=== PATIENT | female | born 1945 | race Caucasian/White ===

== ENCOUNTER 2024-04-30 09:57 | Day surgery (SDC) | payer MEDICARE ==
[2024-04-29 11:02] VITALS: BMI 20.5
[2024-04-30] MEDS: LIDOCAINE 1% (10MG/ML) FOR IV START INTRADERMA STA (11:14)
[2024-04-30] MEDS: IV FLUID CONTINUATION 1,000 ML IV ONE (11:14)
[2024-04-30 11:15] VITALS: TEMP 97.9
[2024-04-30] MEDS: LACTATED RINGERS 1,000 ML IV SCH (11:15)
[2024-04-30] MEDS: ONDANSETRON 4 MG/2 ML VIAL IVP STA (11:27)
[2024-04-30] MEDS ORDERED: LIDOCAINE 1% INJ 10MG/ML (20 ML MDV) ONE (12:17)
[2024-04-30] MEDS ORDERED: PROPOFOL 10 MG/ML 20 ML VIAL IV ONE (12:17)
--- NOTE | 2024-04-30 12:25 | P.PCN ---
Date of Procedure: 04/30/24 Procedure(s) Performed: BRIEF HISTORY: Patient is a 79-year-old, pleasant, white female skilled for an upper endoscopy as a part evaluation of chronic persistent nausea for the last several months duration. She has daily symptoms. Recently started on omeprazole 20 mg daily and symptoms are gradually improving. PROCEDURE PERFORMED: Esophagogastroduodenoscopy biopsy. PREOPERATIVE DIAGNOSIS: Chronic persistent nausea of 2 months duration. IV sedation per anesthesia. PROCEDURE: After informed consent was obtained, the patient was brought into the endoscopy unit. IV sedation was administered by Anesthesia under continuous monitoring. Initially the Olympus GIF-140 video endoscope was inserted into the mouth. Esophagus intubated without any difficulty. It was gradually advanced into the stomach and duodenum and carefully examined. The bulb and the second part of the duodenum appeared normal. The scope at this time was withdrawn to the stomach, adequately insufflated with air, and upon careful examination, mucosa of the antrum, diffuse gastritis and biopsies were done from this area. Mucosa body, cardia and the fundus appeared normal. The scope was then withdrawn into the esophagus. Hiatal hernia noted. The GE junction was located at 39 cm from the incisors. A 3 mm tongue of Pedraza's appearing mucosa proximal to the GE junction that was biopsied. The esophagus appeared normal. There were no erosions or ulcerations seen and the patient tolerated the procedure well. IMPRESSION: 1. Mild antral gastritis. 2. Short segment Pedraza's esophagus 3. Small hiatal hernia RECOMMENDATIONS: The findings of this examination were discussed with the patient as well as her family. She was advised to follow-up with the biopsy results. She will be seen in the office in 2 weeks. The biopsy confirms the presence of Pedraza's esophagus she can have repeat upper endoscopy in 3 years. Meantime she will continue with omeprazole 20 mg daily and follow antireflux measures..
[2024-04-30 12:51] VITALS: BP 165/74; PULSE 68; RESP 16
== END 2024-04-30 13:16 | disposition home or self-care (01) ==
LOC: ORWHC2ENDO 09:57
PROVIDERS: ATTEND Internal Medicine Gastroenterology
DX: K29.51 Unspecified chronic gastritis with bleeding (principal); K22.70 Barrett's esophagus without dysplasia; K44.9 Diaphragmatic hernia without obstruction or gangrene; I10 Essential (primary) hypertension; E78.5 Hyperlipidemia, unspecified
CPT/HCPCS: 88305; 43239; J2405; J2003; J2704

== ENCOUNTER → 2024-12-08 | Outpatient (CLI) | payer MEDICARE ==
--- NOTE | 2024-12-08 17:28 | MR ---
INDICATION: Patient age:Female; 79 years old; Reason for study: R26.81; [facility]. COMPARISON: None. TECHNIQUE: Multi planar, multi sequence imaging was performed through the brain. Specialized thin s equences were obtained through the internal auditory canals. Pre-and post gadolinium sequences were obtained as well after administration of 5 cc of Gadobutrol. FINDINGS: The sanchez-white junctions, ventricular system, basal cisterns appear unremarkable. Mild age -appropriate diffuse cerebral atrophy. Diffusion-weighted imaging shows no evidence of restricted dif fusion. Patchy and confluent areas of high T2/FLAIR signal intensity are seen within the periventric ular and subcortical white matter. Additional involvement of the central sage. Remote lacunar injurie s within the splenium of the corpus callosum and the central sage. Prominent perivascular space withi n the right basal ganglia lentiform nucleus. The susceptibility weighted images demonstrate a single focus of blooming artifact consistent with prior microhemorrhage versus calcification within the lef t cerebellum. After administration of gadolinium, no abnormal enhancement is seen. Bilateral aphakia. Minimal mucosal thickening of the ethmoid sinuses. The internal auditory canal sequences demonstrate no significant irregularity. The 7th cranial nerve s, 8 cranial nerves, and cerebellar pontine angles appear unremarkable. After the administration bettie olinium, no abnormal enhancement is seen within the internal auditory canals. Multilevel degenerative disc disease of the visualized upper cervical spine. IMPRESSION: 1. No evidence of intracranial mass nor acute/subacute CVA. 2. Remote lacunar injuries with moderate nonspecific white matter changes likely related to small ve ssel ischemic disease. 3. No evidence of internal auditory canal abnormality. [facility], , 12/08/2024 5:25 PM
== END | disposition home or self-care (01) ==
LOC: RADMRIMAIN 16:15
PROVIDERS: ATTEND Psychiatry & Neurology Neurology
DX: G31.1 Senile degeneration of brain, not elsewhere classified (principal); R90.82 White matter disease, unspecified; R26.81 Unsteadiness on feet
CPT/HCPCS: 70553; A9585